=== PATIENT | female | born 1955 | race Caucasian/White ===

== ENCOUNTER 2023-01-04 18:04 | Inpatient (IN) | payer OTHER ==
[~2023-01-04] VITALS: Ht 165.1 cm; Wt 115.2 kg
[2023-01-04 18:05] VITALS: BP_SYST 199
[2023-01-04] MEDS ORDERED: ASPIRIN 81 MG TAB.CHEW PO ONE (18:45)
[2023-01-04 19:35] LABS: BASOPHILS # (AUTO) 0.1 K/uL (0.0-0.2); BASOPHILS % (AUTO) 1.1 % (0.0-2.0); EOSINOPHILS # (AUTO) 0.8 K/uL (0.0-0.4); EOSINOPHILS % (AUTO) 8.1 % (0.0-4.0); HEMATOCRIT 36.7 % (36-48); HEMOGLOBIN 12.7 g/dL (12.0-16.0); LYMPHOCYTES # (AUTO) 1.9 K/uL (1.0-5.5); LYMPHOCYTES % (AUTO) 18.3 % (20.5-51.5); MEAN CORPUSCULAR HEMOGLOBIN 30 pg (27-31); MEAN CORPUSCULAR HGB CONC 35 % (32-36); MEAN CORPUSCULAR VOLUME 86 fL (79.0-98.0); MONOCYTES % (AUTO) 9.1 % (1.7-9.3); NEUTROPHILS # (AUTO) 6.7 K/uL (1.8-7.7); NEUTROPHILS % (AUTO) 63.4 % (40.0-70.0); PLATELET COUNT (AUTO) 113 K/uL (130-430); RED BLOOD CELL COUNT(AUTO) 4.28 MIL/uL (4.2-6.2); RED CELL DISTRIBUTION WIDTH 13.7 % (9.0-15.0); WHITE BLOOD COUNT (AUTO) 10.5 K/uL (4.8-10.8)
[2023-01-04 19:36] VITALS: BP_SYST 98
[2023-01-04 19:36] LABS: ANION GAP 11 (5-15); CALCIUM 8.7 mg/dL (8.4-11.0); CHLORIDE 97 mmol/L (98-107); CREATININE 0.92 mg/dL (0.55-1.30); GFR AFRICAN AMERICAN 78 mL/min (>90); GLUCOSE 296 mg/dL (70-99); UREA NITROGEN, BLOOD 19 mg/dL (8-21)
[2023-01-04 19:55] LABS: ALANINE AMINOTRANSFERASE 30 U/L (12-78); ALBUMIN 3.2 g/dL (3.4-4.8); ASPARTATE AMINOTRANSFERASE 51 U/L (10-37); TOTAL BILIRUBIN 0.8 mg/dL (0.0-1.0)
[2023-01-04] MEDS ORDERED: GADOTERATE MEGLUMINE 7.5 MMOL/15 ML VIAL IV ONE (20:34)
[2023-01-04] MEDS ORDERED: iohexoL 350 mgI/mL, 100 ML INFUS..BTL IV ONE (20:36)
[2023-01-04] MEDS ORDERED: LABETALOL HCL 20 MG/4 ML CARTRIDGE IVP ONE (20:45)
[2023-01-04] MEDS ORDERED: INSULIN REGULAR, HUMAN 10 UNITS/0.1 ML, 3 ML VIAL IVP ONE (21:15)
[2023-01-04] MEDS ORDERED: hydrALAZINE HCL 20 MG/ML VIAL IVP PRN (23:00)
[2023-01-04] MEDS: hydrALAZINE HCL 20 MG/ML VIAL IVP PRN (23:36)
[2023-01-04] MEDS ORDERED: LEVO100T9 PO (23:57)
[2023-01-04] MEDS ORDERED: HYDR12.55 PO (23:57)
[2023-01-04] MEDS ORDERED: LISI40TA13 PO (23:57)
[2023-01-04] MEDS ORDERED: FOLI-43 PO (23:57)
[2023-01-04] MEDS ORDERED: ATOR10TA68 PO (23:57)
[2023-01-04] MEDS ORDERED: GLIP5TAB13 PO (23:57)
[2023-01-05 01:05] VITALS: BP_SYST 158
[2023-01-05] MEDS: INSULIN REGULAR, HUMAN 100 UNITS/ML, 3 ML VIAL (humuLIN R) SUBCUT PRN ×4 (06:36→21:08)
[2023-01-05] MEDS: FOLIC ACID 1 MG TABLET PO SCH (10:03)
[2023-01-05] MEDS: ATORVASTATIN 10 MG TABLET PO SCH (10:03)
[2023-01-05] MEDS: ASPIRIN 81 MG TAB.CHEW PO SCH (10:04)
[2023-01-05] MEDS: METOPROLOL SUCCINATE 50 MG TAB.SR.24H (TOPROL XL) PO SCH (10:04)
[2023-01-05] MEDS ORDERED: NON-FORMULARY MEDICATION (Hydrochlorothiazide 12.5 MG) PO SCH (12:30)
[2023-01-05] MEDS ORDERED: HYDROCHLOROTHIAZIDE 12.5 MG CAPSULE (HCTZ) PO ONE (12:45)
[2023-01-05] MEDS: cefTRIAXone 1 GM in D5W 50 ML IV SCH (14:47)
[2023-01-05 16:00] VITALS: BP_SYST 145
[2023-01-05 17:19] LABS: THYROID STIMULATING HORMONE 1.76 uIu/mL (0.34-4.82)
[2023-01-05 20:00] VITALS: BP_SYST 139
[2023-01-05] MEDS ORDERED: lisinopriL 20 MG TABLET PO SCH (21:00)
[2023-01-06] VITALS: BP_SYST 134
[2023-01-06 05:20] LABS: BASOPHILS # (AUTO) 0.1 K/uL (0.0-0.2); BASOPHILS % (AUTO) 0.9 % (0.0-2.0); EOSINOPHILS # (AUTO) 0.7 K/uL (0.0-0.4); EOSINOPHILS % (AUTO) 7.1 % (0.0-4.0); HEMATOCRIT 33.6 % (36-48); HEMOGLOBIN 11.4 g/dL (12.0-16.0); LYMPHOCYTES # (AUTO) 2.3 K/uL (1.0-5.5); LYMPHOCYTES % (AUTO) 22.3 % (20.5-51.5); MEAN CORPUSCULAR HEMOGLOBIN 29 pg (27-31); MEAN CORPUSCULAR HGB CONC 34 % (32-36); MEAN CORPUSCULAR VOLUME 86 fL (79.0-98.0); MONOCYTES # (AUTO) 1.3 K/uL (0.0-1.0); NEUTROPHILS % (AUTO) 57.7 % (40.0-70.0); PLATELET COUNT (AUTO) 109 K/uL (130-430); RED BLOOD CELL COUNT(AUTO) 3.91 MIL/uL (4.2-6.2); RED CELL DISTRIBUTION WIDTH 13.6 % (9.0-15.0); WHITE BLOOD COUNT (AUTO) 10.5 K/uL (4.8-10.8)
[2023-01-06 05:53] LABS: ALBUMIN 2.7 g/dL (3.4-4.8); CALCIUM 8.5 mg/dL (8.4-11.0); CREATININE 0.77 mg/dL (0.55-1.30); TOTAL BILIRUBIN 0.4 mg/dL (0.0-1.0)
[2023-01-06] MEDS ORDERED: LEVOTHYROXINE SODIUM 0.1 MG TABLET PO SCH (07:00)
[2023-01-06 08:00] VITALS: BP_SYST 168
[2023-01-06] MEDS ORDERED: HYDROCHLOROTHIAZIDE 12.5 MG CAPSULE (HCTZ) PO SCH (09:00)
[2023-01-06] MEDS: ASPIRIN 81 MG TAB.CHEW PO SCH (09:14)
[2023-01-06] MEDS: ATORVASTATIN 10 MG TABLET PO SCH (09:14)
[2023-01-06] MEDS: FOLIC ACID 1 MG TABLET PO SCH (09:15)
[2023-01-06] MEDS: METOPROLOL SUCCINATE 50 MG TAB.SR.24H (TOPROL XL) PO SCH (09:16)
[2023-01-06] MEDS: INSULIN REGULAR, HUMAN 100 UNITS/ML, 3 ML VIAL (humuLIN R) SUBCUT PRN (11:27)
[2023-01-06] MEDS: hydrALAZINE HCL 20 MG/ML VIAL IVP PRN (11:31)
[2023-01-06 12:00] VITALS: BP_SYST 199
[2023-01-06] MEDS: cefTRIAXone 1 GM in D5W 50 ML IV SCH (12:34)
[2023-01-06 13:00] VITALS: BP_SYST 154
[2023-01-06] MEDS ORDERED: LISI40TA13 PO (14:08)
[2023-01-06] MEDS ORDERED: METO-542 PO (14:08)
[2023-01-06 17:00] VITALS: BP_SYST 145
[2023-01-06] MEDS ORDERED: lisinopriL 20 MG TABLET PO SCH (21:00)
== END 2023-01-06 17:31 | disposition home or self-care (01) | DRG 638 ==
LOC: SED 18:04 → STU 23:01
PROVIDERS: ADMIT Internal Medicine; ATTEND Internal Medicine
DX: E11.65 Type 2 diabetes mellitus with hyperglycemia (principal); E87.1 Hypo-osmolality and hyponatremia; Z68.41 Body mass index [BMI] 40.0-44.9, adult; I24.8 Other forms of acute ischemic heart disease; I16.0 Hypertensive urgency; C80.1 Malignant (primary) neoplasm, unspecified; I10 Essential (primary) hypertension; C50.912 Malignant neoplasm of unspecified site of left female breast; E88.09 Other disorders of plasma-protein metabolism, not elsewhere classified; R74.01 Elevation of levels of liver transaminase levels; Z20.822 Contact with and (suspected) exposure to COVID-19; E66.01 Morbid (severe) obesity due to excess calories; E03.9 Hypothyroidism, unspecified; F41.0 Panic disorder [episodic paroxysmal anxiety]; Z90.710 Acquired absence of both cervix and uterus; Z98.51 Tubal ligation status; Z85.42 Personal history of malignant neoplasm of other parts of uterus; Z85.3 Personal history of malignant neoplasm of breast; Z79.899 Other long term (current) drug therapy; Z79.84 Long term (current) use of oral hypoglycemic drugs
CPT/HCPCS: 36415; 36600; 71045; 71275; 76376; 80053; 80061; 82803; 82962; 83037; 83605; 83735; 83880; 84439; 84443; 84484; 85025; 87040; 93005; 93306; 96365; 96375; 99285; A9575; G0378; J0360; J0696; J1815; J1956; J7060; Q9967

== ENCOUNTER 2023-01-09 07:47 | Inpatient (IN) | payer OTHER ==
[~2023-01-09] VITALS: Ht 165.1 cm; Wt 108.9 kg
[2023-01-09 07:47] VITALS: BP_SYST 210
[~2023-01-09 07:47] MED LIST: ATOR10TA68 PO; FOLI-43 PO; GLIP5TAB13 PO; HYDR12.55 PO; LEVO100T9 PO; LISI40TA13 PO; METO-542 PO
--- NOTE | 2023-01-09 07:47 | NUR ---
BROUGHT BACK TO BED #6 AND TRIAGED. REPORT GIVEN TO MARIAELENA
--- NOTE | 2023-01-09 07:56 | NUR ---
PT BIB SELF FROM HOME WITH C/O SOB STARTING THIS MORNING. PT STATES SHE WAS SEEN HERE AT THIS HOSPITAL ON FRIDAY FOR THE SAME SYMPTOMS. HX - HTN, THYROID, BREAST CANCER. PT IS AAX04, NAD, VSS, PT IS BREATHING EVEN AND UNLABORED ON RA. PT ON SENIOR MARKETING ANALYST SHOW NSR. SAFETY PRECUATIONS AND COMFORT MEASURES IN PLACE. PENDING MD AMBROSIO AND ORDERS.
--- NOTE | 2023-01-09 07:58 | NUR ---
DR. BALLESTEROS AT BEDSIDE EXAMINING THE PT.
[2023-01-09] MEDS ORDERED: IPRATROPIUM/ALBUTEROL SULFATE 3 ML AMPUL.NEB (DUONEB) INH ONE (08:15)
[2023-01-09 08:37] LABS: BASOPHILS # (AUTO) 0.1 K/uL (0.0-0.2); BASOPHILS % (AUTO) 0.9 % (0.0-2.0); EOSINOPHILS # (AUTO) 0.7 K/uL (0.0-0.4); EOSINOPHILS % (AUTO) 7.7 % (0.0-4.0); HEMATOCRIT 36.8 % (36-48); HEMOGLOBIN 12.4 g/dL (12.0-16.0); LYMPHOCYTES # (AUTO) 1.3 K/uL (1.0-5.5); LYMPHOCYTES % (AUTO) 14.6 % (20.5-51.5); MEAN CORPUSCULAR HEMOGLOBIN 29 pg (27-31); MEAN CORPUSCULAR HGB CONC 34 % (32-36); MEAN CORPUSCULAR VOLUME 86 fL (79.0-98.0); MONOCYTES % (AUTO) 11.4 % (1.7-9.3); NEUTROPHILS # (AUTO) 5.9 K/uL (1.8-7.7); NEUTROPHILS % (AUTO) 65.4 % (40.0-70.0); PLATELET COUNT (AUTO) 111 K/uL (130-430); RED BLOOD CELL COUNT(AUTO) 4.28 MIL/uL (4.2-6.2); RED CELL DISTRIBUTION WIDTH 13.7 % (9.0-15.0); WHITE BLOOD COUNT (AUTO) 9.1 K/uL (4.8-10.8)
[2023-01-09 08:50] LABS: ANION GAP 6 (5-15); CALCIUM 8.6 mg/dL (8.4-11.0); CHLORIDE 94 mmol/L (98-107); CREATININE 0.75 mg/dL (0.55-1.30); GFR AFRICAN AMERICAN 99 mL/min (>90); GLUCOSE 227 mg/dL (70-99); UREA NITROGEN, BLOOD 15 mg/dL (8-21)
[2023-01-09 08:57] LABS: ALANINE AMINOTRANSFERASE 22 U/L (12-78); ALBUMIN 3.2 g/dL (3.4-4.8); ASPARTATE AMINOTRANSFERASE 59 U/L (10-37)
--- NOTE | 2023-01-09 10:14 | NUR ---
PER MD ORDER, ORDER MD CANCELED SECOND LACTIC ACID TEST.
[2023-01-09] MEDS ORDERED: FUROSEMIDE 40 MG/4 ML VIAL IVP ONE (10:30)
[2023-01-09] MEDS ORDERED: ATORVASTATIN 10 MG TABLET PO SCH (11:45)
[2023-01-09] MEDS ORDERED: ATORVASTATIN 10 MG TABLET PO ONE (12:00)
[2023-01-09] MEDS ORDERED: OMEP20CA15 PO (12:03)
[2023-01-09] MEDS ORDERED: LATA2.5D14 EACH EYE (12:03)
[2023-01-09] MEDS ORDERED: DORZ10DR10 EACH EYE (12:03)
[2023-01-09] MEDS ORDERED: ALPR0.25 PO (12:33)
--- NOTE | 2023-01-09 12:44 | NUR ---
Admit bed requested Patient will be admitted to care of . Admitted to TELE unit. Diagnosis CHF Inpatient (Yes or No) YES Observation (Yes or No) YES Orientation concerns or request close to nursing station (Yes or No) NO Covid Status PENDING RESULTS On vent or bipap NO Isolation requirements NO Needs a sitter NO From Home (Yes or if No enter name of facility) YES Requires Dialysis (Yes or No) NO Med Rec Completed (Yes of No) YES
[2023-01-09 15:35] VITALS: BP_SYST 167
--- NOTE | 2023-01-09 15:45 | NUR ---
Admission Pt arrived from ED. Pt was oriented to nursing routines and procedures, questions/concerns were answered at this time. Call light within reach. Tele unit was attached on admission to floor in room/bed. Call light within reach.
--- NOTE | 2023-01-09 15:45 | NUR ---
REPORT GIVEN TO JOHAN DOW FOR CONTINUITY OF CARE. ALL QUESTIONS AND CONCERNS ADDRESSED. ALL CARE ENDORSED.
[2023-01-09 17:22] VITALS: BP_SYST 159
--- NOTE | 2023-01-09 18:45 | NUR ---
End of shift. Pt resting in bed with O2 on at 3L/nc. IV in LAC intact and patent. Pt ambulatory to restroom with steady gait. Bed in low position and side rails raised. Tele unit attached and intact. No needs noted. Call light within reach.
[2023-01-09 20:00] VITALS: BP_SYST 173
--- NOTE | 2023-01-09 20:00 | NUR ---
RECEIVED IN BED DINNER PROVIDED ASSESSMENT COMPLETD PLAN OF CARE REVIEWED CALL LIGHT IN REACH WILL CONTINUE TO MONITOR AND ASSESS
[2023-01-09] MEDS: LATANOPROST 2.5 ML DROPS (XALATAN) OP SCH (21:32)
[2023-01-09] MEDS: DORZOLAMIDE HCL/TIMOLOL MAL. 10 ML EYE DROPS (COSOPT) OP SCH (21:33)
[2023-01-09] MEDS: ALPRAZolam 0.25 MG TABLET PO SCH (21:34)
[2023-01-09] MEDS: FUROSEMIDE 40 MG/4 ML VIAL IVP SCH (21:36)
[2023-01-10 00:36] VITALS: BP_SYST 152
[2023-01-10] MEDS: LEVOTHYROXINE SODIUM 0.1 MG TABLET PO SCH (06:21)
[2023-01-10 08:00] VITALS: BP_SYST 150
[2023-01-10] MEDS: FUROSEMIDE 40 MG/4 ML VIAL IVP SCH (09:42)
[2023-01-10] MEDS: FOLIC ACID 1 MG TABLET PO SCH (09:43)
[2023-01-10] MEDS: lisinopriL 20 MG TABLET PO SCH (09:43)
[2023-01-10] MEDS: METOPROLOL SUCCINATE 50 MG TAB.SR.24H (TOPROL XL) PO SCH (09:43)
[2023-01-10] MEDS: ALPRAZolam 0.25 MG TABLET PO SCH ×2 (09:44→20:59)
[2023-01-10] MEDS: ATORVASTATIN 10 MG TABLET PO SCH (09:44)
[2023-01-10] MEDS: DORZOLAMIDE HCL/TIMOLOL MAL. 10 ML EYE DROPS (COSOPT) OP SCH ×2 (09:45→20:57)
--- NOTE | 2023-01-10 10:31 | NUR ---
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
[2023-01-10 11:31] VITALS: BP_SYST 164
--- NOTE | 2023-01-10 12:39 | NUR ---
CONSULTATION PAGED/CALLED Reason for Consultation: sob Person Who was Notified: Shani Consulting Physician: pramod whiteside Ordering Physician: perla colby
[2023-01-10] MEDS ORDERED: predniSONE 20 MG TABLET PO ONE (13:00)
[2023-01-10] MEDS ORDERED: iohexoL 350 mgI/mL, 100 ML INFUS..BTL IV ONE (14:18)
[2023-01-10] MEDS: cephALEXin 250 MG CAPSULE PO SCH ×2 (14:20→20:58)
--- NOTE | 2023-01-10 15:16 | NUR ---
PHYSICAL THERAPY CO-SIGN The Physical Therapy Progress Notes documented by Electronic Operator have been reviewed. Reviewed/Co-Signed by: Luis E Lang Documentation Done by:JEANIE HUTTON Addendum: 01/10/23 at 1517 by Luis E Lang PT Amended: Links added.
[2023-01-10 18:00] VITALS: BP_SYST 150
--- NOTE | 2023-01-10 18:56 | NUR ---
END OF SHIFT SUMMARY: Patient has been very cooperative and pleasant throughout the day. Patient received care and tests in good humor. Much teaching about various subjects including continued plan of care with patient and daughter. No signs or symptoms of overt discomfort or issues at this time.
--- NOTE | 2023-01-10 20:00 | NUR ---
ASSESSMENT COMPLETED PLAN OF CARE REVIEWED ORIENTED TO ROOM ADVISED TO USE CALL LIGHT EDUCATED ON MEDICATIONS AND SIDE EFFECTS WILL CONTINUE TO MONITOR AND ASSESS
[2023-01-10 20:51] VITALS: BP_SYST 163
[2023-01-10] MEDS: LATANOPROST 2.5 ML DROPS (XALATAN) OP SCH (20:57)
[2023-01-10] MEDS: predniSONE 20 MG TABLET PO SCH (20:58)
[2023-01-11] VITALS: BP_SYST 152
[2023-01-11] MEDS: cephALEXin 250 MG CAPSULE PO SCH ×2 (06:02→14:11)
[2023-01-11] MEDS: LEVOTHYROXINE SODIUM 0.1 MG TABLET PO SCH (06:02)
--- NOTE | 2023-01-11 06:27 | NUR ---
NO CHANGES ALL NEEDS ANTICIPATED AN MET
[2023-01-11 07:18] LABS: BASOPHILS % (AUTO) 0.2 % (0.0-2.0); EOSINOPHILS % (AUTO) 0.1 % (0.0-4.0); HEMATOCRIT 36.7 % (36-48); HEMOGLOBIN 12.5 g/dL (12.0-16.0); LYMPHOCYTES # (AUTO) 1.1 K/uL (1.0-5.5); LYMPHOCYTES % (AUTO) 10.8 % (20.5-51.5); MEAN CORPUSCULAR HEMOGLOBIN 29 pg (27-31); MEAN CORPUSCULAR HGB CONC 34 % (32-36); MEAN CORPUSCULAR VOLUME 86 fL (79.0-98.0); MONOCYTES # (AUTO) 0.5 K/uL (0.0-1.0); MONOCYTES % (AUTO) 4.6 % (1.7-9.3); NEUTROPHILS # (AUTO) 8.8 K/uL (1.8-7.7); NEUTROPHILS % (AUTO) 84.3 % (40.0-70.0); PLATELET COUNT (AUTO) 107 K/uL (130-430); RED BLOOD CELL COUNT(AUTO) 4.28 MIL/uL (4.2-6.2); RED CELL DISTRIBUTION WIDTH 13.6 % (9.0-15.0); WHITE BLOOD COUNT (AUTO) 10.4 K/uL (4.8-10.8)
[2023-01-11 07:34] LABS: ALBUMIN 2.8 g/dL (3.4-4.8); CALCIUM 8.5 mg/dL (8.4-11.0); CREATININE 0.82 mg/dL (0.55-1.30); TOTAL BILIRUBIN 0.8 mg/dL (0.0-1.0)
[2023-01-11 08:00] VITALS: BP_SYST 185
--- NOTE | 2023-01-11 08:05 | NUR ---
OPENING NOTES: RECEIVED BEDSIDE SBAR FROM PM SHIFT NURSE, NO S/S OF ANY DISTRESS, NON LABOR BREATHING, RESTING WELL IN BED WITH EYES CLOSED, BED AT LOW AND LOCKED POSITION, CALL LIGHT IN REACH, IV INTACT, WILL GIVE MEDS PER ORDERS, ALL SAFETY CHECKS DONE AND WILL DO THOUGHT THE DAY.
[2023-01-11] MEDS ORDERED: FUROSEMIDE 40 MG/4 ML VIAL IVP SCH (09:00)
[2023-01-11] MEDS: METOPROLOL SUCCINATE 50 MG TAB.SR.24H (TOPROL XL) PO SCH (09:25)
[2023-01-11] MEDS: lisinopriL 20 MG TABLET PO SCH (09:26)
[2023-01-11] MEDS: FOLIC ACID 1 MG TABLET PO SCH (09:26)
[2023-01-11] MEDS: ATORVASTATIN 10 MG TABLET PO SCH (09:26)
[2023-01-11] MEDS: predniSONE 20 MG TABLET PO SCH (09:26)
[2023-01-11] MEDS: ALPRAZolam 0.25 MG TABLET PO SCH (09:27)
[2023-01-11] MEDS: DORZOLAMIDE HCL/TIMOLOL MAL. 10 ML EYE DROPS (COSOPT) OP SCH (09:28)
[2023-01-11] MEDS ORDERED: PRED20TA PO (12:35)
[2023-01-11] MEDS ORDERED: CEPH250C PO (12:35)
[2023-01-11] MEDS ORDERED: FURO-150 PO (12:36)
[2023-01-11 13:09] VITALS: BP_SYST 184
--- NOTE | 2023-01-11 13:21 | NUR ---
Dietitian Recommendations * Ordered CCHO, low CHO, vegetarian diet GS, MPH, RD Please refer to RD Assessment for further details. Thanks! Addendum: 01/11/23 at [address] Amended: Links added.
[2023-01-12] MEDS ORDERED: predniSONE 20 MG TABLET PO SCH (09:00)
== END 2023-01-11 14:55 | disposition home or self-care (01) | DRG 305 ==
LOC: SED 07:47 → STU 11:37
PROVIDERS: ADMIT Specialist; ATTEND Specialist
DX: I16.9 Hypertensive crisis, unspecified (principal); E44.1 Mild protein-calorie malnutrition; I50.32 Chronic diastolic (congestive) heart failure; I11.0 Hypertensive heart disease with heart failure; I25.10 Atherosclerotic heart disease of native coronary artery without angina pectoris; E78.5 Hyperlipidemia, unspecified; Z20.822 Contact with and (suspected) exposure to COVID-19; Z85.3 Personal history of malignant neoplasm of breast; I25.2 Old myocardial infarction
CPT/HCPCS: 36415; 36600; 71045; 71275; 76376; 80048; 80053; 82533; 82803; 83605; 83735; 83880; 84443; 84484; 85025; 85379; 87081; 93005; 94640; 96374; 97110-GP; 97116-GP; 97163-GP; 97530-GP; 99285; G0378; J1940; J7512; Q9967

== ENCOUNTER 2023-01-16 06:18 | Emergency (ER) | payer OTHER ==
[~2023-01-16] VITALS: Ht 165.1 cm; Wt 112.9 kg
[~2023-01-16 06:18] MED LIST changes: +ALPR0.25 PO; +CEPH250C PO; +DORZ10DR10 EACH EYE; +FURO-150 PO; +LATA2.5D14 EACH EYE; +PRED20TA PO
--- NOTE | 2023-01-16 06:25 | NUR ---
Patient to ER bed 02 to gown for evaluation. Side rails up. Report given to PALOMA PEREIRA.
[2023-01-16 06:30] VITALS: BP_SYST 147
[2023-01-16] MEDS ORDERED: IPRATROPIUM/ALBUTEROL SULFATE 3 ML AMPUL.NEB (DUONEB) INH ONE (06:30)
--- NOTE | 2023-01-16 06:30 | NUR ---
Dr. Guallpa at bedside examining the patient.
--- NOTE | 2023-01-16 06:35 | NUR ---
Dental Patient Coordinator at bedside.
--- NOTE | 2023-01-16 06:35 | NUR ---
RT at bedside for a breathing treatment.
--- NOTE | 2023-01-16 06:43 | NUR ---
Portable x-ray done at bedside.
[2023-01-16 06:57] LABS: BASOPHILS # (AUTO) 0.1 K/uL (0.0-0.2); BASOPHILS % (AUTO) 0.4 % (0.0-2.0); EOSINOPHILS # (AUTO) 0.1 K/uL (0.0-0.4); EOSINOPHILS % (AUTO) 0.7 % (0.0-4.0); HEMATOCRIT 37.7 % (36-48); HEMOGLOBIN 12.6 g/dL (12.0-16.0); LYMPHOCYTES # (AUTO) 2.3 K/uL (1.0-5.5); LYMPHOCYTES % (AUTO) 15.7 % (20.5-51.5); MEAN CORPUSCULAR HEMOGLOBIN 29 pg (27-31); MEAN CORPUSCULAR HGB CONC 34 % (32-36); MEAN CORPUSCULAR VOLUME 86 fL (79.0-98.0); MONOCYTES # (AUTO) 1.8 K/uL (0.0-1.0); MONOCYTES % (AUTO) 12.4 % (1.7-9.3); NEUTROPHILS # (AUTO) 10.5 K/uL (1.8-7.7); PLATELET COUNT (AUTO) 57 K/uL (130-430); RED CELL DISTRIBUTION WIDTH 14.3 % (9.0-15.0); WHITE BLOOD COUNT (AUTO) 14.8 K/uL (4.8-10.8)
--- NOTE | 2023-01-16 07:08 | NUR ---
Report given to Jason DOW for continuity of care.
[2023-01-16 07:13] LABS: ANION GAP 11 (5-15); CALCIUM 8.1 mg/dL (8.4-11.0); CHLORIDE 93 mmol/L (98-107); CREATININE 0.92 mg/dL (0.55-1.30); GFR AFRICAN AMERICAN 78 mL/min (>90); GLUCOSE 371 mg/dL (70-99); UREA NITROGEN, BLOOD 30 mg/dL (8-21)
[2023-01-16 07:16] LABS: INR 1.3 (0.8-1.2); PROTHROMBIN TIME 13.2 SECS (9.5-12.5)
[2023-01-16 07:32] LABS: ALANINE AMINOTRANSFERASE 35 U/L (12-78); ASPARTATE AMINOTRANSFERASE 79 U/L (10-37); TOTAL BILIRUBIN 2.2 mg/dL (0.0-1.0)
[2023-01-16] MEDS ORDERED: ASPIRIN 81 MG TAB.CHEW PO ONE (08:30)
[2023-01-16 09:32] LABS: NEUTROPHILS % (AUTO) 70.8 % (40.0-70.0)
[2023-01-16 09:48] VITALS: BP_SYST 135
--- NOTE | 2023-01-16 09:50 | NUR ---
Patient given written and verbal discharge instructions and verbalizes understanding. ER MD DR BALLESTEROS discussed with patient the results and treatment provided. Patient in stable condition. ID arm band removed. IV catheter removed intact and dressing applied, no active bleeding. Patient educated on pain management and to follow up with PMD. Pain Scale 0/10. Opportunity for questions provided and answered. Medication side effect fact sheet provided.
== END 2023-01-16 09:50 | disposition home or self-care (01) ==
LOC: SED 06:18
DX: I21.3 ST elevation (STEMI) myocardial infarction of unspecified site (principal); R06.02 Shortness of breath; I10 Essential (primary) hypertension; R05.9 Cough, unspecified; Z79.899 Other long term (current) drug therapy; Z20.822 Contact with and (suspected) exposure to COVID-19
CPT/HCPCS: 36415; 71045; 80053; 83605; 83880; 84484; 85025; 85610-TC; 85730-TC; 93005; 94640; 94760; 99285